=== PATIENT | female | born 1990 | race Caucasian/White ===

== ENCOUNTER 2017-03-27 11:19 | Emergency (ER) | payer BC | END 2017-03-27 14:31 | disposition home or self-care (01) | LOC: FTE 11:19 | DX: J06.9 Acute upper respiratory infection, unspecified (principal) | CPT/HCPCS: 99283 ==

== ENCOUNTER 2017-12-16 02:21 | Emergency (ER) | payer BC ==
[2017-12-16] MEDS ORDERED: DEXAMETHASONE 10 MG/ML 1 ML INJ IM (03:00)
[2017-12-16] MEDS: DEXAMETHASONE 10 MG/ML 1 ML INJ IM (03:11)
== END 2017-12-16 04:10 | disposition home or self-care (01) ==
LOC: FTE 02:21
DX: L50.9 Urticaria, unspecified (principal)
CPT/HCPCS: 96372; 99284-25

== ENCOUNTER 2018-02-01 19:16 | Emergency (ER) | payer BC | END 2018-02-01 22:34 | disposition home or self-care (01) | LOC: FTE 19:16 | DX: J20.9 Acute bronchitis, unspecified (principal); S39.012A Strain of muscle, fascia and tendon of lower back, initial encounter; V49.40XA Driver injured in collision with unspecified motor vehicles in traffic accident, initial encounter | CPT/HCPCS: 99283 ==

== ENCOUNTER 2018-03-19 20:20 | Emergency (ER) | payer BC ==
[2018-03-19] MEDS: KETOROLAC 30 MG INJ IM (23:09)
== END 2018-03-19 23:29 | disposition home or self-care (01) ==
LOC: FTE 20:20
DX: R52 Pain, unspecified (principal)
CPT/HCPCS: 81025; 96372; 99284-25